=== PATIENT | female | born 1965 | race Caucasian/White ===

== ENCOUNTER 2024-09-05 19:55 | Emergency (ER) | payer BC, SELFPAY ==
[2024-09-05 19:55] VITALS: BMI 25.0
[2024-09-05 19:59] VITALS: BP 175/100
--- NOTE | 2024-09-05 20:49 | ED.GENMED ---
History of Present Illness
General
Chief Complaint: Musculo-Skeletal Complaint
Source: patient
Exam Limitations: none
Time Seen by Provider: 09/05/24 20:37
History of Present Illness
History of Present Illness:
Patient was kicked in the left arm during karate. Pain distal forearm. No other injury or complaint
Review of Systems
Review of Systems
All Other Systems: Not applicable
Phy Exam
Physical Exam
Physical Exam:
General: Nontoxic appearing in no distress
Skin: Warm and dry, no rash
Neuro: Alert, nontoxic, grossly nonfocal
Psychiatric: Good eye contact and appropriate
Musculoskeletal: Tenderness along the distal ulna. Minimal swelling. No open wound. Proximal forearm elbow within normal limits. No humerus tenderness. Shoulder normal. Good distal pulses and color. Wrist nontender.
Course
Orders/Labs/Results
Orders:
Orders
09/05/24 20:08
Forearm, Left 2 View [CR Forearm - Left 2 View] Urgent
Comment:
Reason For Exam: injury
09/05/24 20:48
Long Arm Left-Treatment ONCE
Sling Left-Treatment ONCE
Vital Signs
Initial and Last Documented VS:
Initial Vital Signs
Temp Pulse Resp BP Pulse Ox
97.8 F 82 16 175/100 100
09/05/24 19:59 09/05/24 19:59 09/05/24 19:59 09/05/24 19:59 09/05/24 19:59
Last Documented Vital Signs
Temp Pulse Resp BP Pulse Ox
97.8 F 82 16 175/100 100
09/05/24 19:59 09/05/24 19:59 09/05/24 19:59 09/05/24 19:59 09/05/24 19:59
*Radiology
Radiology exam reviewed: preliminary read by ED provider (Nondisplaced distal ulna fracture)
*Pulse Oximetry
Patient hypoxic: no (100%)
*Critical Care Note
Total Time (30-74mins, 75-104mins- exclusive of procedures): Not Applicable
Update Note
Update Note:
Orthopedics texted. Splint sling and follow-up
ED Attending Note
-
Portions of this chart may have been created with voice recognition software.� Occasional wrong word or��sound alike� substitutions may have occurred due to the inherent limitations of voice recognition software.
Discharge Plan
Departure
Patient Disposition: Home (Routine Discharge)
Date of Disposition: 09/05/24
Time of Disposition: 20:50
Patient with high blood pressure during this ER visit?: Yes
Discharge Problem:
Distal ulna fracture left
Instructions: Forearm fracture, BLOOD PRESSURE
Referrals:
Monty Sánchez MD [Active, Orthopedics] - Follow up in 2-3 days
Activity Restrictions/Additional Instructions:
Call the orthopedist in the morning for follow-up in the next few days
Interventions
Interventions:
*Risk Screen - Suicide Last Done: 09/05/24 20:00
*Neglect/Abuse Screening Last Done: 09/05/24 20:00
Discharge Date and Time
Print Language: OMANI
== END 2024-09-05 21:13 | disposition home or self-care (01) ==
LOC: EMR 19:55
PROVIDERS: EMERGENCY PHYSICIAN Emergency Medicine; FAMILY PHYSICIAN Family Medicine
DX: S52.692A Other fracture of lower end of left ulna, initial encounter for closed fracture (principal); W50.0XXA Accidental hit or strike by another person, initial encounter
CPT/HCPCS: 99283; 29105; 73090